=== PATIENT | female | born 1975 | race Two or more races ===

== ENCOUNTER 2017-03-20 04:33 | Emergency (ER) | payer OTHER ==
[~2017-03-20] VITALS: Ht 165.1 cm; Wt 48.1 kg
[~2017-03-20 04:33] MED LIST: CODE1CAP24 PO; DEXL60CA3 PO; SPIR50TA PO
[2017-03-20] MEDS ORDERED: PANTOPRAZOLE TAB 40MG (04:48)
--- NOTE | 2017-03-20 04:50 | NUR ---
Patient arrived to ER accompanied by . Patient has complaint of lower abdominal pain. Per patient statement, she has history of GI ulcers. ER MD aware of patient statement. Patient is stable, in bed, complaint of pain present in lower abdomen. Continue to monitor patient
[2017-03-20] MEDS ORDERED: HYDROMORPHONE 1 MG/1 ML DISP.SYRIN IV ONE (05:00)
[2017-03-20] MEDS ORDERED: ONDANSETRON 4 MG/2 ML VIAL IV ONE (05:00)
[2017-03-20] MEDS ORDERED: IV NORMAL SALINE 1000 ML BAG IV ONE (05:00)
[2017-03-20] MEDS ORDERED: ONDANSETRON 4 MG/2 ML VIAL ONE (05:09)
[2017-03-20] MEDS ORDERED: HYDROMORPHONE 1 MG/1 ML DISP.SYRIN ONE (05:09)
[2017-03-20 05:13] LABS: BASOPHILS % (AUTO) 0.3 % (0.0-2.0); EOSINOPHILS # (AUTO) 0.2 K/uL (0.0-0.7); EOSINOPHILS % (AUTO) 2.1 % (0.0-7.0); LYMPHOCYTES # (AUTO) 2.1 K/UL (0.8-4.8); MEAN CORPUSCULAR HEMOGLOBIN 27.4 UUG (27.0-31.0); MEAN CORPUSCULAR HGB CONC 34 g/dL (32.0-37.0); MEAN CORPUSCULAR VOLUME 80.4 FL (81.0-99.0); MONOCYTES # (AUTO) 0.4 K/UL (0.1-1.30); MONOCYTES % (AUTO) 3.1 % (0.0-11.0); NEUTROPHILS # (AUTO) 8.8 K/UL (1.8-8.9); NEUTROPHILS % (AUTO) 76.5 % (38.5-71.5); PLATELET COUNT (AUTO) 191 K/UL (150-450); RED BLOOD CELL COUNT(AUTO) 5.09 MIL/UL (4.2-5.4); WHITE BLOOD COUNT (AUTO) 11.5 K/UL (4.0-11.2)
[2017-03-20 05:27] LABS: BILIRUBIN,DIRECT 0.1 mg/dL (0.0-0.2); BILIRUBIN,TOTAL 0.3 mg/dL (0.2-1.0); POTASSIUM 3.7 mmol/L (3.5-5.1); TOTAL PROTEIN, SERUM 7.7 g/dL (6.4-8.2)
[2017-03-20 05:55] LABS: *BILIRUBIN,URIN NEGATIVE (NEGATIVE); *BLOOD, URINE 1+ (NEGATIVE); *CLARITY,URINE CLEAR (CLEAR); *COLOR,URINE YELLOW (YELLOW); *KETONES,URINE 1+ (NEGATIVE); *PROTEIN,URINE NEGATIVE (NEGATIVE); *UROBILINOGEN,URINE 0.2 E.U./dl (NORMAL); LEUKOCYTE ESTERASE ,URINE NEGATIVE (NEGATIVE); NITRITE, URINE NEGATIVE (NEGATIVE); UGLUCOSE NEGATIVE (NEGATIVE)
[2017-03-20 05:58] LABS: BACTERIA,URINE MODERATE /HPF (NONE SEEN); SQUAMOUS EPITHELIAL CELL,UR MANY /HPF (NONE SEEN); WBC,URINE 0-3 /HPF (0-3)
--- NOTE | 2017-03-20 06:50 | NUR ---
Patient discharged to home in stable conditon. Written and verbal after care instructions given. Patient verbalizes understanding of instructions. Ambulated from ER with stable gait. All belongings with patient.
[2017-03-20 06:51] VITALS: BP 128/69
--- NOTE | 2017-03-20 06:53 | NUR ---
Patient will be driven home by in private vehicle. Patient is aware not to drive or operate heavy machinery due to recent Dilaudid intake. Patient agrees to comply with instructions
== END 2017-03-20 06:54 | disposition home or self-care (01) ==
LOC: ER 04:35
DX: R10.13 Epigastric pain (principal); R10.10 Upper abdominal pain, unspecified; F12.10 Cannabis abuse, uncomplicated; Z88.0 Allergy status to penicillin
CPT/HCPCS: 36415; 76700; 80048; 80076; 81001; 83690; 84703; 85025; 96361; 96374; 96375; 99285; J1170; J2405; J7030

== ENCOUNTER 2018-01-03 00:02 | Emergency (ER) | payer OTHER ==
[~2018-01-03] VITALS: Ht 165.1 cm; Wt 48.1 kg
[~2018-01-03 00:02] MED LIST changes: +PANTOPRAZOLE TAB 40MG
--- NOTE | 2018-01-03 00:30 | NUR ---
Dr. Holcomb at bedside for MSE.
[2018-01-03] MEDS ORDERED: ONDANSETRON ODT 4 MG TAB.RAPDIS ONE ×2 (00:41→00:49)
[2018-01-03] MEDS ORDERED: KETOROLAC TROMETHAMINE 60 MG INJ IM ONE ×2 (00:41→00:45)
[2018-01-03] MEDS ORDERED: ONDANSETRON ODT 4 MG TAB.RAPDIS SL ONE (00:45)
--- NOTE | 2018-01-03 01:18 | NUR ---
Patient reports no pain and nausea is gone.
[2018-01-03] MEDS ORDERED: ALPRAZOLAM 0.5 MG TABLET ONE (01:27)
[2018-01-03] MEDS ORDERED: ALPRAZOLAM 0.25 MG TABLET PO ONE (01:30)
--- NOTE | 2018-01-03 01:33 | NUR ---
Patient discharged to home in stable conditon. Written and verbal after care instructions given. Patient verbalizes understanding of instructions. Patient ambulated out of ER with steady gait, VSS, no acute signs of distress, all belongings taken. Patient to be driven by via private vehicle.
[2018-01-03 01:35] VITALS: BP 102/62
== END 2018-01-03 01:36 | disposition home or self-care (01) ==
LOC: ER 00:02
DX: G43.909 Migraine, unspecified, not intractable, without status migrainosus (principal); R11.0 Nausea; F41.9 Anxiety disorder, unspecified; F12.10 Cannabis abuse, uncomplicated; Z88.0 Allergy status to penicillin; Z79.891 Long term (current) use of opiate analgesic; Z79.899 Other long term (current) drug therapy
CPT/HCPCS: A4663; J1885; Q0162

== ENCOUNTER 2021-05-08 22:13 | Emergency (ER) | payer SELFPAY ==
--- NOTE | 2021-05-08 22:50 | NUR ---
Patient not in waiting room lobby, or outside ED.
--- NOTE | 2021-05-08 22:59 | NUR ---
Patient not in waiting room lobby, or outside ED.
--- NOTE | 2021-05-08 23:12 | NUR ---
Patient not in waiting room lobby, or outside ED. Patient left without being seen by ER physician.
== END 2021-05-08 23:13 | disposition left against medical advice (07) ==
LOC: ER 22:13
DX: Z53.21 Procedure and treatment not carried out due to patient leaving prior to being seen by health care provider (principal)